=== PATIENT | male | born 2005 | race American Indian/Alaskan Native ===

== ENCOUNTER 2024-09-03 10:27 | Emergency (ER) | payer SELFPAY | END 2024-09-03 10:30 | disposition left against medical advice (07) | LOC: MW.ED 10:27 | DX: Z53.21 Procedure and treatment not carried out due to patient leaving prior to being seen by health care provider (principal) ==

== ENCOUNTER 2025-09-29 03:12 | Emergency (ER) | payer OTHER | END 2025-09-29 03:57 | disposition home or self-care (01) | LOC: MW.ED 03:12 | DX: S61.210A Laceration without foreign body of right index finger without damage to nail, initial encounter (principal); W26.8XXA Contact with other sharp object(s), not elsewhere classified, initial encounter | CPT/HCPCS: 12001; 99282; 99283 ==